=== PATIENT | female | born 1995 | race Caucasian/White ===

== ENCOUNTER 2025-01-20 13:12 | Outpatient (CLI) | payer OTHER | END 2025-01-20 13:31 | disposition home or self-care (01) | LOC: NST 13:12 | PROVIDERS: ATTEND Obstetrics & Gynecology Maternal & Fetal Medicine | DX: Z34.83 Encounter for supervision of other normal pregnancy, third trimester (principal) ==

== ENCOUNTER 2025-02-18 13:30 | Inpatient (IN) | payer OTHER ==
[~2025-02-18] VITALS: Ht 162.6 cm; Wt 2.7 kg
[2025-02-26] MEDS ORDERED: PR NATAL 400 C1 EACH PO (15:41)
[2025-02-26] MEDS ORDERED: INTEGRA PLUS C1 EACH PO (15:41)
[2025-02-26 16:51] VITALS: BP 110/76
[2025-02-26] MEDS ORDERED: RINGERS SOLUTION,LACTATED 1,000 ML IV SCH (17:45)
[2025-02-26 18:33] VITALS: BP 118/74
[2025-02-26 23:26] VITALS: BP 101/67
[2025-02-27 03:49] VITALS: BP 94/58
[2025-02-27 07:55] VITALS: BP 135/87
[2025-02-27] MEDS ORDERED: OXYTOCIN 500 ML IV SCH (08:30)
[2025-02-27 12:14] VITALS: BP 122/79
[2025-02-27 15:28] VITALS: BP 122/77; O2SAT 99
[2025-02-27] MEDS ORDERED: OXYTOCIN 10 UNITS/ML VIAL ONE ×2 (16:11→21:45)
[2025-02-27] MEDS ORDERED: ERYTHROMYCIN BASE OPHT 1GM EACH TUBE OP ONE (16:11)
[2025-02-27] MEDS ORDERED: CEFAZOLIN SODIUM 1,000 MG VIAL ONE (17:16)
[2025-02-27] MEDS ORDERED: OXYTOCIN 1,000 ML IV ONE (17:30)
[2025-02-27] MEDS ORDERED: KETOROLAC TROMETHAMINE 30 MG VIAL IV SCH (18:00)
[2025-02-27] MEDS ORDERED: MORPHINE SULFATE 4 MG/ML VIAL IV SCH (20:00)
[2025-02-27] MEDS ORDERED: KETOROLAC TROMETHAMINE 30 MG VIAL ONE (21:37)
[2025-02-27 22:23] VITALS: BP 129/77
[2025-02-28] VITALS: BP 129/81
[2025-02-28] MEDS ORDERED: ACETAMINOPHEN 500 MG GEL..CAP PO SCH
[2025-02-28 07:40] LABS: BASO % 0.3 % (0.1-1.2); EOS # 0.02 (0.04-0.54); EOS % 0.2 % (0.7-7.0); LYMPH # 1.80 (1.18-3.74); LYMPH % 15.2 % (19.3-53.1); MEAN PLATELET VOLUME 13.10 fl (9.4-12.4); MONO # 1.04 (0.24-0.82); MONO % 8.8 % (4.7-12.5); NEUT # 8.89 (1.56-6.13); NEUT % 75.0 % (34.0-71.1); RED CELL DISTRIBUTION WIDTH 13.1 % (11.6-14.4)
[2025-02-28 08:00] VITALS: BP 109/72
[2025-02-28] MEDS ORDERED: PNV,CALCIUM 72/IRON/FOLIC ACID 1 TAB TABLET PO SCH (09:00)
[2025-02-28] MEDS ORDERED: DOCUSATE SODIUM 100MG CAP PO SCH (09:00)
[2025-02-28] MEDS ORDERED: GABAPENTIN 300 MG CAPSULE PO SCH (09:00)
[2025-02-28] MEDS ORDERED: SIMETHICONE 125 MG CAPSULE PO SCH (09:00)
[2025-02-28] MEDS ORDERED: KETOROLAC TROMETHAMINE 30 MG VIAL IV SCH (14:00)
[2025-02-28 15:26] LABS: BASO % 0.1 % (0.1-1.2); EOS # 0.01 (0.04-0.54); EOS % 0.1 % (0.7-7.0); LYMPH # 1.11 (1.18-3.74); LYMPH % 7.4 % (19.3-53.1); MEAN PLATELET VOLUME 12.40 fl (9.4-12.4); MONO # 0.93 (0.24-0.82); MONO % 6.2 % (4.7-12.5); NEUT # 12.78 (1.56-6.13); NEUT % 85.7 % (34.0-71.1); RED CELL DISTRIBUTION WIDTH 12.9 % (11.6-14.4)
[2025-02-28 16:14] LABS: INR < 0.93
[2025-02-28 19:33] VITALS: BP 118/80
[2025-03-01] VITALS: BP 129/85
[2025-03-01 09:43] VITALS: BP 126/86
[2025-03-01 13:08] VITALS: BP 128/87
== END 2025-03-01 16:22 | disposition home or self-care (01) | DRG 788 ==
LOC: LDR 02-26 17:20 → O/R 02-27 17:14 → OB/GYN 02-27 19:00
PROVIDERS: Obstetrics & Gynecology Gynecology; ADMIT Obstetrics & Gynecology; ATTEND Obstetrics & Gynecology
PROC: 4A1HXCZ Monitoring of Products of Conception, Cardiac Rate, External Approach (ICD-10-PCS; 2025-02-26)
PROC: 10D00Z1 Extraction of Products of Conception, Low, Open Approach (ICD-10-PCS; principal; 2025-02-27 16:00)
DX: O82 Encounter for cesarean delivery without indication (principal); O69.81X0 Labor and delivery complicated by cord around neck, without compression, not applicable or unspecified; Z3A.38 38 weeks gestation of pregnancy; Z37.0 Single live birth

== ENCOUNTER 2025-02-26 14:05 | Outpatient (CLI) | payer OTHER ==
[2025-02-26 15:25] VITALS: BP 110/76
[2025-02-26] MEDS ORDERED: INTEGRA PLUS C1 EACH PO (15:41)
[2025-02-26] MEDS ORDERED: PR NATAL 400 C1 EACH PO (15:41)
[2025-02-26] MEDS ORDERED: RINGERS SOLUTION,LACTATED 1,000 ML IV SCH (16:30)
[2025-02-26 17:10] LABS: BASO % 0.3 % (0.1-1.2); EOS # 0.02 (0.04-0.54); EOS % 0.2 % (0.7-7.0); LYMPH # 1.87 (1.18-3.74); LYMPH % 18.1 % (19.3-53.1); MEAN PLATELET VOLUME 12.70 fl (9.4-12.4); MONO # 0.69 (0.24-0.82); MONO % 6.7 % (4.7-12.5); NEUT # 7.70 (1.56-6.13); NEUT % 74.3 % (34.0-71.1); RED CELL DISTRIBUTION WIDTH 13.1 % (11.6-14.4)
[2025-02-26 17:31] LABS: INR < 0.93
[2025-02-26 17:45] LABS: ALT/SGPT 24.0 U/L (12-78); AST/SGOT 23.0 U/L (15-37); BILIRUBIN TOTAL 0.35 mg/dL (0.3-1.2); BUN CREA RATIO 15.0 (7.0-25.0); CREATININE SERUM 0.54 mg/dL (0.55-1.02); GFR 134.43; GLOBULINA 3.8 G/DL (2.4-3.5); GLUCOSE FASTING 71.0 mg/dL (65-100); OSMOLALITY SERUM 278.0 MOSM/KG (275-295)
== END 2025-02-26 17:17 | disposition still patient (30) ==
LOC: OBS/DEL 14:05 → NST 14:05 → OBS/DEL 15:35
PROVIDERS: ATTEND Obstetrics & Gynecology
DX: O26.893 Other specified pregnancy related conditions, third trimester (principal)